=== PATIENT | female | born 1970 | race Caucasian/White ===

== ENCOUNTER 2016-07-25 09:48 | Emergency (ER) | payer MEDICARE, MEDICAID ==
[2016-07-25 11:40] VITALS: BP 98/54
--- NOTE | 2016-07-25 12:00 | UC ---
Skin Complaint HPI - HPI Summary HPI Summary: ONSET OF SMALL ITCHY RED PATCH OF SKIN UNDER RIGHT BREAST. NO FEVER. IT IS ITCHY. NO DRAINAGE. NO NEW EXPOSURES. APPARENTLY HAS A H/O ECZEMA. - History of Current Complaint Chief Complaint: UCRash Time Seen by Provider: 07/25/16 11:43 Stated Complaint: RASH RT SIDE RIB AREA Hx Obtained From: Patient Onset/Duration: Sudden Onset Timing: Constant Onset Severity: Mild Current Severity: Mild Pain Intensity: 0 Pain Scale Used: 0-10 Numeric Location: Discrete - SKIN UNDER RIGHT BREAST Character: Redness Aggravating: Touch Alleviating: Nothing - Allergy/Home Medications Allergies/Adverse Reactions: Allergies Allergy/AdvReac Type Severity Reaction Status Date / Time Fluconazole [From Diflucan] Allergy Unknown Unknown Verified 07/25/16 11:29 Reaction Details PABA Derivatives Allergy Unknown Unknown Verified 07/25/16 11:29 Reaction Details Review of Systems Constitutional: Negative Skin: Rash Respiratory: Negative Cardiovascular: Negative Gastrointestinal: Negative All Other Systems Reviewed And Are Negative: Yes PMH/Surg Hx/FS Hx/Imm Hx Endocrine History Of: Reports: Thyroid Disease Denies: Diabetes Cardiovascular History Of: Reports: Cardiac Disorders - mild mitral valve regurg Denies: Hypertension Respiratory History Of: Reports: Asthma Denies: COPD - Surgical History Surgical History: Yes Surgery Procedure, Year, and Place: cholecystectomy, hysterectomy - Family History Known Family History: Positive: None - Social History Alcohol Use: None Substance Use Type: None Smoking Status (MU): Never Smoked Tobacco - Immunization History Most Recent Influenza Vaccination: [id number] Most Recent Tetanus Shot: 2004 Physical Exam Triage Information Reviewed: Yes Appearance: Well-Appearing, No Pain Distress, Well-Nourished Vital Signs: Initial Vital Signs Temp 97.8 F 07/25/16 11:18 Pulse 50 07/25/16 11:18 Resp 14 07/25/16 11:18 BP 98/54 07/25/16 11:18 Pulse Ox 98 07/25/16 11:18 Vital Signs Reviewed: Yes Eyes: Positive: Conjunctiva Clear ENT: Positive: Hearing grossly normal Neck: Positive: Supple Respiratory: Positive: No respiratory distress, No accessory muscle use Cardiovascular: Positive: Pulses Normal Abdomen Description: Positive: Soft Musculoskeletal: Positive: No Edema Neurological: Positive: Alert Psychological: Positive: Age Appropriate Behavior Skin: Positive: Other - 1.5CM X 1CM AREA OF ERYTHEMA IN SKIN FOLD UNDER RIGHT BREAST, MEDIALLY. NO EXCORIATION OR DRAINAGE Course/Dx - Course Course Of Treatment: PT ADMITS TO RECURRENT AREAS OF DRY SKIN. LIKELY ECZEMA PATCH. WILL TRY TOPPICAL STEROID AND F/U PCP OR DERM IF NOT IMPROVING. - Diagnoses Provider Diagnoses: DERMATITIS, NOS Discharge - Discharge Plan Condition: Stable Disposition: HOME Prescriptions: Triamcinolone 0.1% CREAM(NF) [Kenalog Cream 0.1%(NF)] 1 applic TOPICAL TID PRN # 1 tube PRN Reason: Itching Patient Education Materials: Dermatitis (ED) Referrals: Quintin Edmond MD [Primary Care Provider] - If Needed Additional Instructions: IF YOUR RASH DOES NOT CLEAR UP AFTER ABOUT 2 WEEKS OF USING THE STEROID CREAM THEN FOLLOW-UP WITH YOUR PCP OR DERMATOLOGY. KEEP COOL, CLEAN AND DRY ABLE. DERMATOLOGY IN [place] Dr. Krissy Hobbs. [phone] [place] [address] Padmini Estrella [place] VICTORIA SAINZ [phone]
== END 2016-07-25 12:28 | disposition home or self-care (01) ==
LOC: UCCORT 09:48
DX: L30.9 Dermatitis, unspecified (principal); E07.9 Disorder of thyroid, unspecified; J45.909 Unspecified asthma, uncomplicated; I34.0 Nonrheumatic mitral (valve) insufficiency; Z88.8 Allergy status to other drugs, medicaments and biological substances
CPT/HCPCS: 99212; G0463

== ENCOUNTER 2016-10-26 19:57 | Emergency (ER) | payer MEDICARE, MEDICAID ==
--- NOTE | 2016-10-26 20:49 | UC ---
Minor Trauma HPI - HPI Summary HPI Summary: 46 YEAR OLD FEMALE PRESENTS WITH COMPLAINS OF FALLING ON HER CHIN. SHE HAS A LARGE CHIN HEMATOMA AND I WILL SEN DHER TO THE ER. - History of Current Complaint Stated Complaint: FALL,CHIN/MOUTH INJURIES Time Seen by Provider: 10/26/16 20:48 Hx Obtained From: Patient Onset/Duration: Sudden Onset Severity Initially: Moderate Severity Currently: Moderate Pain Scale Used: 0-10 Numeric - 5 Aggravating Factor(s): Nothing Alleviating Factor(s): Nothing - Allergies/Home Medications Allergies/Adverse Reactions: Allergies Allergy/AdvReac Type Severity Reaction Status Date / Time Fluconazole [From Diflucan] Allergy Unknown Unknown Verified 10/26/16 20:52 Reaction Details PABA Derivatives Allergy Unknown Unknown Verified 10/26/16 20:52 Reaction Details Home Medications: Home Medications Acetaminophen TAB* [Tylenol TAB*] 650 mg PO Q4H PRN 10/26/16 [History Confirmed 10/26/16] Mometasone Furoate [Elocon] 0.1 % EX DAILY 10/26/16 [History Confirmed 10/26/16] PMH/Surg Hx/FS Hx/Imm Hx Previously Healthy: Yes - Surgical History Surgical History: Yes Surgery Procedure, Year, and Place: cholecystectomy, hysterectomy - Family History Known Family History: Positive: None - Social History Alcohol Use: None Substance Use Type: None Smoking Status (MU): Never Smoked Tobacco - Immunization History Most Recent Influenza Vaccination: [id number] Most Recent Tetanus Shot: 2004 Review of Systems Constitutional: Negative Skin: Bruising - CHIN HEMATOMA Eyes: Negative ENT: Negative Respiratory: Negative Cardiovascular: Negative Gastrointestinal: Negative Genitourinary: Negative Motor: Negative Neurovascular: Negative Musculoskeletal: Negative Neurological: Negative Psychological: Negative All Other Systems Reviewed And Are Negative: Yes Physical Exam Triage Information Reviewed: Yes Eye Exam: Normal ENT Exam: Normal Dental Exam: Normal Neck exam: Normal Neck: Positive: 1 Respiratory Exam: Normal Cardiovascular Exam: Normal Abdominal Exam: Normal Musculoskeletal Exam: Normal Neurological Exam: Normal Psychological Exam: Normal Skin: Positive: Other - CHIN HEMATOMA Minor Trauma Course/Dx - Differential Dx/Diagnosis Provider Diagnoses: [place] HEMATOMA Discharge - Discharge Plan Condition: Guarded Disposition: AGAINST MEDICAL ADVICE Patient Education Materials: Facial Contusion (ED) Referrals: Quintin Edmond MD [Primary Care Provider] - Additional Instructions: PLEASE GO TO ER FOR EVALUATION OF LARGE FACIAL HEMATOMA.
[2016-10-26 20:51] VITALS: BP 109/49
== END 2016-10-26 21:47 | disposition left against medical advice (07) ==
LOC: UCCORT 19:57
DX: W19.XXXA Unspecified fall, initial encounter (principal)
CPT/HCPCS: 99212; G0463

== ENCOUNTER 2016-10-26 22:30 | Emergency (ER) | payer MEDICARE, MEDICAID ==
--- NOTE | 2016-10-27 01:11 | ED ---
Head Injury - HPI Summary HPI Summary: Pt here w/ facial injury - fell forward around 17:00 tonight and landed on coffee table - hit her chin and broke her dentures. Bruising and swelling of chin - tender to touch. Denies LOC, PACKER, change in vision, nausea, vomiting, numbness, tingling, weakness, numbness, syncope. Associated sx of neck pain - pt didn't offer but upon questioning and exam, she is tender. Moving extremities well and no other areas of injury. - History Of Current Complaint Chief Complaint: EDFacialInjury Stated Complaint: CHIN INJURY, COMING FROM [facility] Time Seen by Provider: 10/26/16 23:17 Hx Obtained From: Patient, Family/Cable Cutter And Swager - gum puller Pain Intensity: 8 - Allergies/Home Medications Allergies/Adverse Reactions: Allergies Allergy/AdvReac Type Severity Reaction Status Date / Time Fluconazole [From Diflucan] Allergy Unknown Unknown Verified 10/26/16 20:52 Reaction Details PABA Derivatives Allergy Unknown Unknown Verified 10/26/16 20:52 Reaction Details PMH/Surg Hx/FS Hx/Imm Hx Previously Healthy: Yes Endocrine/Hematology History: Reports: Hx Thyroid Disease Denies: Hx Anticoagulant Therapy, Hx Blood Disorders, Hx Diabetes Cardiovascular History: Reports: Hx Hypercholesterolemia - VASCEPA Denies: Hx Hypertension Respiratory History: Reports: Hx Asthma - mild, Hx Seasonal Allergies - LORATADINE Denies: Hx Chronic Obstructive Pulmonary Disease (COPD) GI History: Reports: Hx Gastroesophageal Reflux Disease - PANTOPRAZOLE Musculoskeletal History: Denies: Hx Arthritis, Hx Osteoporosis EENT History: Reports: Other - dentures Psychiatric History: Reports: Hx Anxiety, Hx Depression - takes citalopram - Surgical History Surgery Procedure, Year, and Place: cholecystectomy, hysterectomy Infectious Disease History: No Infectious Disease History: Denies: Traveled Outside the [place] in Last 30 Days - Family History Known Family History: Positive: None - Social History Occupation: Unemployed Lives: [facility] - [employer] [facility] Alcohol Use: None Hx Substance Use: No Substance Use Type: Reports: None Hx Tobacco Use: No Smoking Status (MU): Never Smoked Tobacco Review of Systems Constitutional: Negative Negative: Fatigue Eyes: Negative Negative: Photophobia, Blurred Vision, Diplopia ENT: Other - see HPI Negative: Ear Ache, Nasal Discharge Cardiovascular: Negative Negative: Chest Pain Respiratory: Negative Negative: Shortness Of Breath Gastrointestinal: Negative Negative: Abdominal Pain, Vomiting, Diarrhea, Nausea Positive: no symptoms reported Musculoskeletal: Other - see HPI Positive: Bruising - see HPI Neurological: Negative Negative: Headache, Weakness, Paresthesia, Numbness, Syncope, Slurred Speech Psychological: Normal All Other Systems Reviewed And Are Negative: Yes Physical Exam Triage Information Reviewed: Yes Vital Signs On Initial Exam: Initial Vitals Temp Pulse Resp BP Pulse Ox 97.4 F 54 14 122/47 100 10/26/16 22:34 10/26/16 22:34 10/26/16 22:34 10/26/16 22:34 10/26/16 22:34 Vital Signs Reviewed: Yes Appearance: Positive: Well-Appearing, No Pain Distress, Obese Skin: Positive: Warm, Dry - purpuric ecchymosis over chin w/ edema and TTP - no skin breakdown Head/Face: Positive: Normal Head/Face Inspection - no gross deformity; NTTP. Negative: TMJ Tenderness Eyes: Positive: Normal, EOMI, CAIT, Conjunctiva Clear ENT: Positive: Normal ENT inspection, Hearing grossly normal, Pharynx normal - no blood or signs of trauma, TMs normal - no hemotympanum. Negative: Nasal drainage Dental: Positive: Other - edentulous; maxillary gingival ridge is NTTP Neck: Positive: Supple, Tenderness @ - paracervical mm Respiratory/Lung Sounds: Positive: Clear to Auscultation, Breath Sounds Present. Negative: Stridor, Wheezes Cardiovascular: Positive: Normal Abdomen Description: Positive: Nontender, Soft Musculoskeletal: Positive: Normal, Strength/ROM Intact Neurological: Positive: Normal, Sensory/Motor Intact, Alert, Oriented to Person Place, Time, CN Intact II-III Psychiatric: Positive: Normal - [place] Coma Scale Coma Scale Total: 15 Diagnostics - Vital Signs Vital Signs Temp Pulse Resp BP Pulse Ox 10/26/16 22:34 97.4 F 54 14 122/47 100 - Laboratory Diagnostic Studies Comment: CT cervical spine: reviewed report by radiologist - neg fx, malalignment. Degenerative changes. CT maxillofacial: reviewed report by radiologist - neg orbital and facial fx. Globes and orbits are intact. Lab Statement: Any lab studies that have been ordered have been reviewed, and results considered in the medical decision making process. Head Injury Course/Dx Course Of Treatment: Pt's CT's are neg for acute pathology. Advised monitoring for concussion sx and care for chin injury. Follow-up with PCP this week for re- evaluation. Return to ED if concussion s/sx present. - Diagnoses Provider Diagnoses: Fall from standing, Chin contusion, Cervical strain Discharge - Discharge Plan Condition: Stable Disposition: HOME Patient Education Materials: Contusion in Adults (ED), Cervical Strain (ED), Head Injury (ED) Referrals: Quintin Edmond MD [Primary Care Provider] - Additional Instructions: You have sustained a head injury. Your CT images are negative for acute pathology. It is important that you continue to ice and rest your chin. You may take acetaminophen and ibuprofen with food as needed for pain. You are also encouraged to stay hydrated and nourished with soft foods and liquids until your dentures may be repaired or replaced. *If you develop headache, weakness, change in vision, syncope, numbness, vomiting, return to ED for brain CT
[2016-10-27 02:38] VITALS: BP 120/55
--- NOTE | 2016-10-27 08:00 | RAD ---
HISTORY: Fall, facial trauma COMPARISONS: None TECHNIQUE: Multiple contiguous axial CT scans were obtained of the face without intravenous contrast, with coronal and sagittal multiplanar reformations. FINDINGS: BONES: There is no displaced fracture or dislocation. The orbital rim is intact. The zygomatic arch is intact. The pterygoid plates are intact. The patient is edentulous with resorption of the alveolar processes of the mandible and maxilla. Degenerative changes are noted of the spine ORBITS: The globes are round. The optic nerves are symmetric. The extraocular musculature is normal. There is no post septal or intraconal inflammatory change. There is no retrobulbar hematoma. PARANASAL SINUSES: The paranasal sinuses are clear. BRAIN AND SOFT TISSUE: There is premental soft tissue swelling. OTHER: None. IMPRESSION: NO FACIAL FRACTURE
--- NOTE | 2016-10-27 08:03 | RAD ---
INDICATION: Neck pain post fall. Down syndrome/joint laxity. COMPARISON: No relevant prior exams available on the [facility] PACS. TECHNIQUE: Multidetector CT images foramen magnum to lung apices without contrast. Multiplanar reformation. REPORT: Normal vertebral alignment accounting for exam positioning without spondylolisthesis or subluxation at any level. Negative for cervical vertebral body or posterior element fracture. Negative for paravertebral hematoma. Normal atlantoaxial alignment and predental space. Multilevel moderately severe degenerative spondylosis and mild facet joint osteoarthritis. At C4-C5 uncinate process spurring and facet joint osteoarthritis results in mild bilateral foraminal stenosis. Mild dorsal disc osteophyte complex results in mild impression on the ventral margin of the thecal sac. At C5-C6 dorsal disc osteophyte complex results in mild impression on the ventral margin of the thecal sac. IMPRESSION: No evidence for traumatic cervical spine injury. Degenerative spondylosis and facet joint osteoarthritis.
== END 2016-10-27 02:37 | disposition home or self-care (01) ==
LOC: ED 22:30
DX: S16.1XXA Strain of muscle, fascia and tendon at neck level, initial encounter (principal); S00.83XA Contusion of other part of head, initial encounter; W19.XXXA Unspecified fall, initial encounter; Y93.9 Activity, unspecified; Y92.9 Unspecified place or not applicable
CPT/HCPCS: 70486; 72125; 99282